=== PATIENT | female | born 1985 | race Caucasian/White ===

== ENCOUNTER 2018-03-10 18:35 | Inpatient (IN) | payer OTHER ==
[2018-03-10 19:18] LABS: ADD MAN DIFF? NO
[2018-03-10 19:19] LABS: BASOPHILS % 0.3 % (0.0-2.0); EOSINOPHILS # 0.1 10^3/ul (0.0-0.5); EOSINOPHILS % 0.6 % (0.0-7.0); HEMATOCRIT 40.6 % (37.0-47.0); HEMOGLOBIN 13.6 g/dl (12.0-16.0); LYMPHOCYTES # 1.9 10^3/ul (0.8-2.9); LYMPHOCYTES % 16.4 % (15.0-51.0); MEAN CORPUSCULAR HEMOGLOBIN 30.2 pg (29.0-33.0); MEAN CORPUSCULAR HGB CONC 33.5 g/dl (32.0-37.0); MEAN CORPUSCULAR VOLUME 90.2 fl (82.0-101.0); MEAN PLATELET VOLUME 10.6 fl (7.4-10.4); MONOCYTE # 0.8 10^3/ul (0.3-0.9); MONOCYTES % 6.4 % (0.0-11.0); NEUTROPHIL # 8.8 10^3/ul (1.6-7.5); NEUTROPHILS % 74.9 % (39.0-77.0); PLATELET COUNT 368 10^3/UL (140-415); RED CELL DISTRIBUTION WIDTH 14.1 % (11.5-14.5)
[2018-03-10 19:19] LABS: WHITE BLOOD COUNT 11.8 10^3/ul (4.8-10.8)
[2018-03-10] MEDS ORDERED: OXYTOCIN 30 UNITS/LR 500 ML IV ×2 (19:29→19:30)
[2018-03-10] MEDS ORDERED: CARBOPROST 250 MCG INJ IM (19:30)
[2018-03-10] MEDS ORDERED: METHYLERGONOVINE 0.2 MG INJ IM (19:30)
[2018-03-10] MEDS ORDERED: morphine SULFATE/PF (10 MG/10 ML) INJ (19:30)
[2018-03-10] MEDS ORDERED: ONDANSETRON 4 MG INJ (19:30)
[2018-03-10] MEDS ORDERED: MISOPROSTOL 200 MCG TAB PR (19:30)
[2018-03-10] MEDS ORDERED: METOCLOPRAMIDE 10 MG INJ (19:30)
[2018-03-10] MEDS: LACTATED RINGER'S 1,000 ML IV (19:38)
[2018-03-10] MEDS: CITRIC ACID/NA CITRATE 30 ML CUP PO (19:38)
[2018-03-10 20:13] LABS: HEPATITIS B SURFACE ANTIGEN NEGATIVE (NEGATIVE)
[2018-03-10 20:20] LABS: INR 0.95; PROTIME 12.8 Sec (11.9-14.9)
[2018-03-10 20:21] LABS: PARTIAL THROMBOPLASTIN TIME 26.8 Sec (23.0-35.0)
[2018-03-10] MEDS ORDERED: KETOROLAC 30 MG INJ (20:35)
[2018-03-10] MEDS ORDERED: FENTAnyl 50 MCG/ML VIAL (21:08)
[2018-03-10] MEDS ORDERED: LIDOCAINE 2% (SDV) 5 ML INJ (21:08)
[2018-03-10] MEDS ORDERED: EPHEDrine 25 MG/5 ML SYG (21:11)
[2018-03-10] MEDS ORDERED: NALOXONE (0.4 MG/ML) INJ IV (22:30)
[2018-03-10] MEDS ORDERED: DIPHENHYDRAMINE 50 MG INJ IV ×2 (22:30)
[2018-03-10] MEDS ORDERED: morphine 2 MG INJ IV ×3 (22:30)
[2018-03-10] MEDS ORDERED: morphine (1 MG/ML) 10ML SYRINGE IV ×3 (22:30)
[2018-03-10] MEDS ORDERED: KETOROLAC 30 MG INJ IV (22:30)
[2018-03-10] MEDS: OXYTOCIN 30 UNITS/LR 500 ML IV (22:40)
[2018-03-10] MEDS: CEFAZOLIN 2 GM/50 ML (PMX) 50 ML IVPB (23:54)
[2018-03-11] MEDS: ONDANSETRON 4 MG INJ IV ×2 (00:28→08:01)
[2018-03-11] MEDS: OXYTOCIN 30 UNITS/LR 500 ML IV (01:56)
[2018-03-11] MEDS: LACTATED RINGER'S 1,000 ML IV ×2 (06:06→14:15)
[2018-03-11 08:52] LABS: ADD MAN DIFF? NO
[2018-03-11 09:24] LABS: WHITE BLOOD COUNT 14.2 10^3/ul (4.8-10.8)
[2018-03-11 09:24] LABS: BASOPHILS % 0.1 % (0.0-2.0); EOSINOPHILS % 0.2 % (0.0-7.0); HEMATOCRIT 38.3 % (37.0-47.0); HEMOGLOBIN 12.6 g/dl (12.0-16.0); LYMPHOCYTES # 1.3 10^3/ul (0.8-2.9); LYMPHOCYTES % 9.3 % (15.0-51.0); MEAN CORPUSCULAR HGB CONC 32.9 g/dl (32.0-37.0); MEAN CORPUSCULAR VOLUME 91.2 fl (82.0-101.0); MEAN PLATELET VOLUME 10.8 fl (7.4-10.4); MONOCYTE # 1.2 10^3/ul (0.3-0.9); MONOCYTES % 8.1 % (0.0-11.0); NEUTROPHIL # 11.6 10^3/ul (1.6-7.5); NEUTROPHILS % 81.6 % (39.0-77.0); PLATELET COUNT 348 10^3/UL (140-415); RED CELL DISTRIBUTION WIDTH 14.4 % (11.5-14.5)
[2018-03-11 15:44] LABS: RAPID PLASMA REAGIN NONREACTIVE (NR)
[2018-03-12] MEDS: HYDROCODONE/APAP (5/325) TAB PO ×3 (11:57→21:47)
[2018-03-12] MEDS: IBUPROFEN 800 MG TAB PO ×2 (14:33→21:48)
[2018-03-13] MEDS: HYDROCODONE/APAP (5/325) TAB PO ×2 (05:52→14:00)
[2018-03-13] MEDS: IBUPROFEN 800 MG TAB PO ×2 (05:52→15:47)
[2018-03-13] MEDS: BISACODYL 10 MG SUPP PR (13:50)
[2018-03-13] MEDS: DIPHTH/TET/ACEL PERTUSS (ADULT) 0.5 ML VIAL IM* (13:50)
== END 2018-03-13 17:00 | disposition home or self-care (01) | DRG 785 ==
LOC: L-D 18:35 → PP1 03-11 00:58
PROVIDERS: Obstetrics & Gynecology
PROC: 10D00Z1 Extraction of Products of Conception, Low, Open Approach (ICD-10-PCS; principal; 2018-03-10 19:30)
PROC: 0UB70ZZ Excision of Bilateral Fallopian Tubes, Open Approach (ICD-10-PCS; 2018-03-10 19:30)
DX: O34.219 Maternal care for unspecified type scar from previous cesarean delivery (principal); G89.18 Other acute postprocedural pain; Z3A.39 39 weeks gestation of pregnancy; Z37.0 Single live birth; Z30.2 Encounter for sterilization; Z23 Encounter for immunization
CPT/HCPCS: 85025; 85610; 85730; 86592; 86850; 86900; 86901; 87340; 88302; 90686; 90715; 99464